=== PATIENT | female | born 1975 | race African-American/Black ===

== ENCOUNTER 2017-07-15 18:00 | Emergency (ER) | payer OTHER ==
[~2017-07-15] VITALS: Ht 162.6 cm; Wt 56.4 kg
[~2017-07-15 18:00] MED LIST: CITA10SO PO; DEPO400I IM
[2017-07-15 18:22] VITALS: BP 136/79; PULSE 99; RESP 20; TEMP 98.6; O2SAT 100
[2017-07-15 19:53] LABS: BILIRUBIN, URINE NEG (NEG); BLOOD, URINE SMALL (NEG); GLUCOSE,URINE NEG (NEG); KETONE, URINE NEG (NEG); NITRITE,URINE NEG (NEG); PH, URINE 5.5 (5.0-8.5); SQUAMOUS EPITHELIAL CELL URINE 1 /hpf (0-5); URINE COLOR YELLOW (YELLW/STRAW); URINE LEUKOCYTE ESTERASE NEG (NEG)
--- NOTE | 2017-07-15 22:12 | PD ---
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 She reports that the symptoms started this morning, she states it davis when she urinates. She denies any new lotions or detergents. She denies any vaginal bleeding, fevers, back pain, abdominal pain. She states that she took Diflucan this morning but her symptoms persisted. She does report unprotected sexual activity however she is in a monogamous relationship. Symptom onset was sudden, symptoms are mild in nature. PFSH Past Medical History Cardiovascular Problems: Yes (HEART MURMUR) Migraines: No Myocardial Infarction: No Radiation Therapy: No Renal Failure: No Seizures: No Sickle Cell Disease: No Sleep Apnea: No Thyroid Disease: No Ulcer: No ?: Not : 4 Para: 3 Miscarriage: 1 : 0 Past Surgical History Joint Replacement: No Pacemaker: Yes Other Surgery: Yes (BROKEN JAW WIRED 1992) Social History Alcohol Use: No Tobacco Use: No Substance Use: No Allergies-Medications (Allergen,Severity, Reaction): Coded Allergies: penicillin G (Unverified Allergy, Intermediate, RASH, 11/26/16) Reported Meds & Prescriptions Reported Meds & Active Scripts Active Reported Depo-Provera Inj (Medroxyprogesterone Inj) 150 Mg/Ml Inj 150 Mg IM Q90D Review of Systems Except as stated in HPI: all other systems reviewed are Neg Genitourinary: Positive: Dysuria, Discharge, Other (Foul odor) Physical Exam Narrative GENERAL: Well-developed, well-nourished, well-appearing female. Presenting in no acute distress. SKIN: Warm and dry. HEAD: Normocephalic. EYES: No scleral icterus. No injection or drainage. NECK: Supple, trachea midline. No JVD or lymphadenopathy. CARDIOVASCULAR: Regular rate and rhythm without murmurs, gallops, or rubs. RESPIRATORY: Breath sounds equal bilaterally. No accessory muscle use. GASTROINTESTINAL: Abdomen soft, non-tender, nondistended. MUSCULOSKELETAL: No cyanosis, or edema. BACK: Nontender without obvious deformity. No CVA tenderness. GENITOURINARY: Normal external genitalia without lesions or erythema. Vaginal vault without blood. White malodorous drainage noted in vaginal vault. Cervical os was closed with scant blood. No cervical motion tenderness. Uterus nontender and nonenlarged. Bilateral adnexa nontender without masses. Data Data Last Documented VS Vital Signs Date Time Temp Pulse Resp B/P (MAP) Pulse Ox O2 Delivery O2 Flow Rate FiO2 07/15/17 18:22 98.6 99 20 136/79 (98) 100 Orders Orders Urinalysis - C+S If Indicated (07/15/17 18:24) Ed Urine Pregnancytest Poc (07/15/17 18:24) Gc And Chlamydia Pcr (07/15/17 22:05) Wet Prep Profile (07/15/17 22:05) Labs Laboratory Tests Test 07/15/17 18:50 07/15/17 22:30 Urine Color YELLOW Urine Turbidity CLEAR Urine pH 5.5 Urine Specific [place] 1.012 Urine Protein NEG mg/dL Urine Glucose (UA) NEG mg/dL Urine Ketones NEG mg/dL Urine Occult Blood SMALL Urine Nitrite NEG Urine Bilirubin NEG Urine Urobilinogen LESS THAN 2.0 MG/DL Urine Leukocyte Esterase NEG Urine RBC 2 /hpf Urine Squamous Epithelial Cells 1 /hpf Microscopic Urinalysis Comment CULT NOT INDICATED Clue Cells (Wet Prep) PRESENT Vaginal Trichomonas (Wet Prep) NONE SEEN Vaginal Yeast (Wet Prep) NONE SEEN MDM Medical Decision Making Medical Screen Exam Complete: Yes Emergency Medical Condition: Yes Interpretation(s) Laboratory Tests Test 07/15/17 18:50 07/15/17 22:30 Urine Color YELLOW Urine Turbidity CLEAR Urine pH 5.5 Urine Specific [place] 1.012 Urine Protein NEG mg/dL Urine Glucose (UA) NEG mg/dL Urine Ketones NEG mg/dL Urine Occult Blood SMALL Urine Nitrite NEG Urine Bilirubin NEG Urine Urobilinogen LESS THAN 2.0 MG/DL Urine Leukocyte Esterase NEG Urine RBC 2 /hpf Urine Squamous Epithelial Cells 1 /hpf Microscopic Urinalysis Comment CULT NOT INDICATED Clue Cells (Wet Prep) PRESENT Vaginal Trichomonas (Wet Prep) NONE SEEN Vaginal Yeast (Wet Prep) NONE SEEN Vital Signs Date Time Temp Pulse Resp B/P (MAP) Pulse Ox O2 Delivery O2 Flow Rate FiO2 07/15/17 18:22 98.6 99 20 136/79 (98) 100 Differential Diagnosis UTI versus STD versus bacterial vaginosis versus Eryn versus other Narrative Course Patient is a 38-year-old female presenting to emergency room for evaluation of vaginal discharge and urinary symptoms. Patient's vital signs are stable, labs ordered and pending. Urinalysis unremarkable. Wet prep is positive for clue cells. Patient will be treated with metronidazole. 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 She is encouraged to return to emergency department for any new or worsening symptoms. She verbalized understanding of instructions. Patient stable for discharge. Will defer treatment for GC and chlamydia until results are available as patient is in a monogamous relationship with no risk factors. 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
[2017-07-15] MEDS ORDERED: DEPO150I IM (22:31)
[2017-07-15] MEDS ORDERED: METR1TAB76 PO (23:22)
[2017-07-15] MEDS ORDERED: metroNIDAZOLE 500 MG TAB PO ONE (23:30)
== END 2017-07-15 23:29 | disposition home or self-care (01) ==
LOC: NEPD 18:00
DX: N76.0 Acute vaginitis (principal); B96.89 Other specified bacterial agents as the cause of diseases classified elsewhere; Z95.0 Presence of cardiac pacemaker; Z88.0 Allergy status to penicillin; Z79.899 Other long term (current) drug therapy
CPT/HCPCS: 81001; 84703; 87210; 87491; 87591; 99284

== ENCOUNTER 2017-07-28 15:57 | Emergency (ER) | payer OTHER ==
[~2017-07-28 15:57] MED LIST changes: -CITA10SO PO; +DEPO150I IM; -DEPO400I IM; +METR1TAB76 PO
[2017-07-28 16:23] VITALS: BP 141/70; PULSE 86; RESP 16; TEMP 98.9; O2SAT 100
--- NOTE | 2017-07-28 16:41 | RADRPT ---
EXAM DATE/TIME: 07/28/2017 16:34 [facility] COMPARISON: No previous studies available for comparison. INDICATIONS : Cough. MEDICAL HISTORY : None. SURGICAL HISTORY : None. ENCOUNTER: Initial ACUITY: 1 week PAIN SCORE: 6/10 LOCATION: Bilateral chest FINDINGS: PA and lateral views of the chest demonstrate the lungs to be symmetrically aerated without evidence of mass, infiltrate or effusion. The cardiomediastinal contours are unremarkable. Osseous structure s are intact with a mild dextroscoliosis of the dorsal spine. CONCLUSION: No acute cardiopulmonary process. Lungs are clear. Ross Estrada MD on July 28, 2017 at 16:38 Board Certified Radiologist. This report was verified electronically.
[2017-07-28 18:08] VITALS: O2SAT 100
[2017-07-28] MEDS ORDERED: CELE10TA PO (18:09)
--- NOTE | 2017-07-28 18:09 | PD ---
HPI Chief Complaint: Cold / Flu Symptoms Time Seen by Provider: 18:03 Travel History International Travel<30 days: No Contact w/Intl Traveler<30days: No Traveled to known affect area: No History of Present Illness HPI 41-year-old female here for evaluation of flulike symptoms with cough, sore throat, generalized malaise, abdominal pain, one episode of vomiting this morning. Symptoms started 2 days ago with a sore throat. Cough started today. Cough is productive of yellowish sputum. No hemoptysis. She reports one episode of posttussive emesis this morning, and since that time has had some epigastric discomfort that she describes as a pressure, constant. No history of abdominal surgeries. No fevers. No diarrhea. PFSH Past Medical History Arthritis: No Asthma: No Autoimmune Disease: No Blood Disorders: No Anxiety: No Depression: No Heart Rhythm Problems: No Cancer: No Cardiovascular Problems: Yes (HEART MURMUR) Chemotherapy: No Chest Pain: No Congestive Heart Failure: No COPD: No Cerebrovascular Accident: No Diabetes: No Diminished Hearing: No Endocrine: No Gastrointestinal Disorders: No GERD: No Glaucoma: No Genitourinary: No Headaches: No Hepatitis: No Hiatal Hernia: No Heparin Induced Thrombocytopen: No Hypertension: No Immune Disorder: No Implanted Vascular Access Dvce: No Kidney Stones: No Musculoskeletal: No Neurologic: No Psychiatric: No Reproductive: Yes (MISCARRIAGE ) Respiratory: No Migraines: No Myocardial Infarction: No Radiation Therapy: No Renal Failure: No Seizures: No Sickle Cell Disease: No Sleep Apnea: No Thyroid Disease: No Ulcer: No ?: Not : 4 Para: 3 Miscarriage: 1 : 0 Past Surgical History Abdominal Surgery: No AICD: No Appendectomy: No Arteriovenous Shunt: No Cardiac Surgery: No Cholecystectomy: No Ear Surgery: No Endocrine Surgery: No Eye Surgery: No Genitourinary Surgery: No Gynecologic Surgery: No Insulin Pump: No Joint Replacement: No Neurologic Surgery: No Oral Surgery: No Pacemaker: Yes Thoracic Surgery: No Other Surgery: Yes (BROKEN JAW WIRED 1992) Social History Alcohol Use: No Tobacco Use: No Substance Use: No Allergies-Medications (Allergen,Severity, Reaction): Coded Allergies: penicillin G (Unverified Allergy, Intermediate, RASH, 11/26/16) Reported Meds & Prescriptions Reported Meds & Active Scripts Active Reported Celexa (Citalopram Hydrobromide) 10 Mg Tab 10 Mg PO DAILY Depo-Provera Inj (Medroxyprogesterone Inj) 150 Mg/Ml Inj 150 Mg IM Q90D Review of Systems Except as stated in HPI: all other systems reviewed are Neg Physical Exam Narrative GENERAL: Well-developed, well-nourished, comfortable, no apparent distress. SKIN: Focused skin assessment warm/dry. HEAD: Atraumatic. Normocephalic. EYES: Pupils equal and round. No scleral icterus. No injection or drainage. ENT: Mucous membranes pink and moist. NECK: Trachea midline. No JVD. CARDIOVASCULAR: Regular rate and rhythm. RESPIRATORY: No accessory muscle use. Clear to auscultation. Breath sounds equal bilaterally. GASTROINTESTINAL: Abdomen soft, nondistended. Mild epigastric tenderness without peritoneal signs. Negative Jain sign. Rest of abdomen is soft and nontender. Normal bowel sounds. MUSCULOSKELETAL: No obvious deformities. No clubbing. No cyanosis. No edema. NEUROLOGICAL: Awake and alert. No obvious cranial nerve deficits. Motor grossly within normal limits. Normal speech. PSYCHIATRIC: Appropriate mood and affect; insight and judgment normal. Data Data Last Documented VS Vital Signs Date Time Temp Pulse Resp B/P (MAP) Pulse Ox O2 Delivery O2 Flow Rate FiO2 07/28/17 19:06 62 18 135/70 (91) 100 Room Air 07/28/17 16:23 98.9 Orders Orders Chest, Pa & Lat (07/28/17 ) Beta Hcg (Quant/Titer) (07/28/17 18:06) Complete Blood Count With Diff (07/28/17 18:06) Comprehensive Metabolic Panel (07/28/17 18:06) Lipase (07/28/17 18:06) Prothrombin Time / Inr (Pt) (07/28/17 18:06) Act Partial Throm Time (Ptt) (07/28/17 18:06) Urinalysis - C+S If Indicated (07/28/17 18:06) Iv Access Insert/Monitor (07/28/17 18:06) Ecg Monitoring (07/28/17 18:06) Oximetry (07/28/17 18:06) Sodium Chloride 0.9% Flush (Ns Flush) (07/28/17 18:15) Al-Mag Hy-Si 40-40-4 Mg/Ml Liq (Mag-Al P (07/28/17 18:15) Lidocaine 2% Viscous (Xylocaine 2% Visco (07/28/17 18:15) Influenzae A/B Antigen (07/28/17 18:09) Metoclopramide Inj (Reglan Inj) (07/28/17 20:15) Ketorolac Inj (Toradol Inj) (07/28/17 20:15) Labs Laboratory Tests Test 07/28/17 18:30 07/28/17 18:45 Urine Color YELLOW Urine Turbidity CLEAR Urine pH 5.5 Urine Specific [place] 1.020 Urine Protein NEG mg/dL Urine Glucose (UA) NEG mg/dL Urine Ketones NEG mg/dL Urine Occult Blood MOD Urine Nitrite NEG Urine Bilirubin NEG Urine Urobilinogen LESS THAN 2.0 MG/DL Urine Leukocyte Esterase NEG Urine RBC 6 /hpf Urine Squamous Epithelial Cells <1 /hpf Microscopic Urinalysis Comment CULT NOT INDICATED White Blood Count 8.2 TH/MM3 Red Blood Count 4.49 MIL/MM3 Hemoglobin 13.7 GM/DL Hematocrit 41.2 % Mean Corpuscular Volume 91.8 FL Mean Corpuscular Hemoglobin 30.5 PG Mean Corpuscular Hemoglobin Concent 33.2 % Red Cell Distribution Width 13.8 % Platelet Count 268 TH/MM3 Mean Platelet Volume 7.5 FL Neutrophils (%) (Auto) 55.5 % Lymphocytes (%) (Auto) 37.1 % Monocytes (%) (Auto) 5.3 % Eosinophils (%) (Auto) 1.7 % Basophils (%) (Auto) 0.4 % Neutrophils # (Auto) 4.6 TH/MM3 Lymphocytes # (Auto) 3.1 TH/MM3 Monocytes # (Auto) 0.4 TH/MM3 Eosinophils # (Auto) 0.1 TH/MM3 Basophils # (Auto) 0.0 TH/MM3 CBC Comment DIFF FINAL Differential Comment Prothrombin Time 9.7 SEC Prothromb Time International Ratio 1.0 RATIO Activated Partial Thromboplast Time 24.4 SEC Blood Urea Nitrogen 14 MG/DL Creatinine 1.00 MG/DL Random Glucose 84 MG/DL Total Protein 7.6 GM/DL Albumin 3.4 GM/DL Calcium Level 8.4 MG/DL Alkaline Phosphatase 108 U/L Aspartate Amino Transf (AST/SGOT) 34 U/L Alanine Aminotransferase (ALT/SGPT) 22 U/L Total Bilirubin 0.8 MG/DL Sodium Level 140 MEQ/L Potassium Level 5.2 MEQ/L Chloride Level 111 MEQ/L Carbon Dioxide Level 22.6 MEQ/L Anion Gap 6 MEQ/L Estimat Glomerular Filtration Rate 73 ML/MIN Lipase 161 U/L Human Chorionic Gonadotropin, Quant LESS THAN 1 MIU/ML MDM Medical Decision Making Medical Screen Exam Complete: Yes Emergency Medical Condition: Yes Differential Diagnosis Influenza, flulike illness, pneumonia, bronchitis, gastritis, peptic ulcer disease, pancreatitis, hepatobiliary disease Narrative Course Vital signs reviewed and are within normal limits. CBC is unremarkable. CMP is remarkable for potassium of 5.2 with slight hemolysis, otherwise unremarkable. Lipase is 161. UA shows moderate occult blood, 6 RBCs, not suggestive of UTI. Beta-hCG is negative. Chest x-ray: No acute cardiopulmonary process. Lungs are clear. Influenza is negative. Patient was made aware of all findings. States her abdominal pain is improved after GI cocktail. Pain was epigastric and is likely gastritis. She complains of frontal headache and will be given Reglan and Toradol and will be reassessed. Patient was given Reglan and Toradol and feels significantly improved. Her abdominal exam is benign. I do not believe that there is an acute intra- abdominal process to warrant further imaging at this time. She is stable for discharge home with outpatient follow-up with her primary care physician this week. She likely has a viral illness. She was informed on when to return to the emergency department. She verbalizes understanding and agreement with plan. Diagnosis Primary Impression: Viral illness Additional Impressions: Epigastric abdominal pain Headache Qualified Codes: R51 - Headache Referrals: Primary Care Physician 3 days Additional Instructions: Follow-up with your primary care physician this week. Return to the emergency department for worsening symptoms or any other concerns. Disposition: 01 DISCHARGE HOME Condition: Stable Aden Tipton MD Jul 28, 2017 18:09
[2017-07-28] MEDS ORDERED: LIDOCAINE VISCOUS 2% SOLN 15 ML UDC PO ONE (18:15)
[2017-07-28] MEDS ORDERED: ALUMINUM/MAGNESIUM/SIMETH 30 ML CUP PO ONE (18:15)
[2017-07-28] MEDS ORDERED: SODIUM CHLORIDE 0.9% FLUSH 10 ML FLUSH IV FLUSH PRN (18:15)
[2017-07-28 19:02] LABS: AUTOMATED NEUTROPHIL # 4.6 TH/MM3 (1.8-7.7); BASOPHIL % 0.4 % (0.0-2.0); EOSINOPHIL # 0.1 TH/MM3 (0-0.4); EOSINOPHIL % 1.7 % (0.0-4.0); HEMATOCRIT 41.2 % (35.0-46.0); HEMOGLOBIN 13.7 GM/DL (11.6-15.3); LYMPH % 37.1 % (9.0-44.0); LYMPHOCYTE # 3.1 TH/MM3 (1.0-4.8); MEAN CELL VOLUME 91.8 FL (80.0-100.0); MEAN CORPUSCULAR HEMOGLOBIN 30.5 PG (27.0-34.0); MEAN CORPUSCULAR HGB CONC 33.2 % (32.0-36.0); MEAN PLATELET VOLUME 7.5 FL (7.0-11.0); MONO % 5.3 % (0.0-8.0); MONOCYTE # 0.4 TH/MM3 (0-0.9); NEUT % 55.5 % (16.0-70.0); PLATELET COUNT 268 TH/MM3 (150-450); RED BLOOD COUNT 4.49 MIL/MM3 (4.00-5.30); RED CELL DISTRIBUTION WIDTH 13.8 % (11.6-17.2); WHITE BLOOD COUNT 8.2 TH/MM3 (4.0-11.0)
[2017-07-28 19:06] VITALS: BP 135/70; PULSE 62; RESP 18; O2SAT 100
[2017-07-28 19:14] LABS: BILIRUBIN, URINE NEG (NEG); BLOOD, URINE MOD (NEG); GLUCOSE,URINE NEG (NEG); KETONE, URINE NEG (NEG); NITRITE,URINE NEG (NEG); PH, URINE 5.5 (5.0-8.5); SQUAMOUS EPITHELIAL CELL URINE <1 /hpf (0-5); URINE COLOR YELLOW (YELLW/STRAW); URINE LEUKOCYTE ESTERASE NEG (NEG)
[2017-07-28 19:18] LABS: ALT (GPT) 22 U/L (10-53); PROTHROMBIN TIME - PATIENT 9.7 SEC (9.8-11.6)
[2017-07-28 19:20] LABS: ALBUMIN 3.4 GM/DL (3.4-5.0); AST (GOT) 34 U/L (15-37); BICARBONATE 22.6 MEQ/L (21.0-32.0); BLOOD UREA NITROGEN 14 MG/DL (7-18); CALCIUM 8.4 MG/DL (8.5-10.1); CHLORIDE 111 MEQ/L (98-107); GLOMERULAR FILTRATION RATE 73 ML/MIN (>89); GLUCOSE,RANDOM 84 MG/DL (74-106); SODIUM (NA) 140 MEQ/L (136-145)
[2017-07-28 19:22] LABS: ALKALINE PHOSPHATASE 108 U/L (45-117); TOTAL BILIRUBIN ADULT 0.8 MG/DL (0.2-1.0); TOTAL PROTEIN 7.6 GM/DL (6.4-8.2)
[2017-07-28] MEDS ORDERED: KETOROLAC TROMETHAMINE 30 MG/ML (IVP) VIAL IV PUSH ONE (20:15)
[2017-07-28] MEDS ORDERED: METOCLOPRAMIDE HCL 10 MG/2 ML VIAL IV PUSH ONE (20:15)
== END 2017-07-28 20:50 | disposition home or self-care (01) ==
LOC: NEPD 15:57
DX: B34.9 Viral infection, unspecified (principal); R10.13 Epigastric pain; R51 Headache; J02.9 Acute pharyngitis, unspecified; R53.81 Other malaise; R01.1 Cardiac murmur, unspecified; Z88.0 Allergy status to penicillin
CPT/HCPCS: 71046; 80053; 81001; 83690; 84702; 85025; 85610; 85730; 87804; 96374; 96375; 99284; J1885; J2765

== ENCOUNTER 2017-10-04 18:16 | Emergency (ER) | payer OTHER ==
[~2017-10-04] VITALS: Ht 160 cm; Wt 57.0 kg
[~2017-10-04 18:16] MED LIST changes: +CELE10TA PO; -METR1TAB76 PO
[2017-10-04 18:22] VITALS: BP 129/72; PULSE 72; RESP 16; TEMP 98.3; O2SAT 100
[2017-10-04] MEDS ORDERED: ROBA500T PO (19:34)
[2017-10-04] MEDS ORDERED: DICL75TA PO (19:34)
--- NOTE | 2017-10-04 19:40 | PD ---
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 The patient states that she did not notice any significant discomfort initially but the pain progressively came on over the next 24 hours. She states the pain radiates up into her neck and into her right shoulder. She has difficulty moving her right arm due to pain. She denies any prior injury. She denies any sensory changes. No weakness. PFSH Past Medical History Narrative Medical depression Arthritis: No Asthma: No Autoimmune Disease: No Blood Disorders: No Anxiety: No Depression: No Heart Rhythm Problems: No Cancer: No Cardiovascular Problems: Yes (HEART MURMUR) Chemotherapy: No Chest Pain: No Congestive Heart Failure: No COPD: No Cerebrovascular Accident: No Diabetes: No Diminished Hearing: No Endocrine: No Gastrointestinal Disorders: No GERD: No Glaucoma: No Genitourinary: No Headaches: No Hepatitis: No Hiatal Hernia: No Heparin Induced Thrombocytopen: No Hypertension: No Immune Disorder: No Implanted Vascular Access Dvce: No Kidney Stones: No Musculoskeletal: No Neurologic: No Psychiatric: No Reproductive: Yes (MISCARRIAGE ) Respiratory: No Migraines: No Myocardial Infarction: No Radiation Therapy: No Renal Failure: No Seizures: No Sickle Cell Disease: No Sleep Apnea: No Thyroid Disease: No Ulcer: No Tetanus Vaccination: < 5 Years ?: Not LMP: DEPO : 4 Para: 3 Miscarriage: 1 : 0 Past Surgical History Abdominal Surgery: No AICD: No Appendectomy: No Arteriovenous Shunt: No Cardiac Surgery: No Cholecystectomy: No Ear Surgery: No Endocrine Surgery: No Eye Surgery: No Genitourinary Surgery: No Gynecologic Surgery: No Insulin Pump: No Joint Replacement: No Neurologic Surgery: No Oral Surgery: No Pacemaker: Yes Thoracic Surgery: No Other Surgery: Yes (BROKEN JAW WIRED 1992) Social History Alcohol Use: Yes (occ) Tobacco Use: No Substance Use: No Allergies-Medications (Allergen,Severity, Reaction): Coded Allergies: penicillin G (Unverified Allergy, Intermediate, RASH, 11/26/16) Reported Meds & Prescriptions Reported Meds & Active Scripts Active Robaxin (Methocarbamol) 500 Mg Tab 1,000 Mg PO TID [address] (Diclofenac Sodium) 75 Mg Tabdr 75 Mg PO BID Reported Celexa (Citalopram Hydrobromide) 10 Mg Tab 10 Mg PO DAILY Depo-Provera Inj (Medroxyprogesterone Inj) 150 Mg/Ml Inj 150 Mg IM Q90D Review of Systems General / Constitutional: No: Fever Eyes: No: Visual changes HENT: Positive: Neck Stiffness, Neck Pain, No: Headaches Cardiovascular: No: Chest Pain or Discomfort Respiratory: No: Shortness of Breath Gastrointestinal: No: Abdominal Pain Genitourinary: No: Dysuria Musculoskeletal: Positive: Myalgias, Limited ROM, Cramping, Pain, No: Arthralgias Skin: No Rash Neurologic: No: Weakness Psychiatric: No: Depression Endocrine: No: Polydipsia Hematologic/Lymphatic: No: Easy Bruising Physical Exam Narrative GENERAL: Well-developed, well-nourished in no apparent distress. Nontoxic appearing. HEAD: Normocephalic, atraumatic. EYES: Pupils equal round and reactive. Extraocular motions intact. No scleral icterus. No injection or drainage. ENT: Nose clear. Throat without erythema, tonsillar hypertrophy or exudate. Uvula midline. Airway patent. NECK: Trachea midline. Supple, no central bony tenderness. Patient has tenderness and spasm to the right trapezius with decreased range of motion. CARDIOVASCULAR: Regular rate and rhythm without murmurs, gallops, or rubs. RESPIRATORY: Clear to auscultation. Breath sounds equal bilaterally. No wheezes , rales, or rhonchi. GASTROINTESTINAL: Abdomen soft, non-tender, nondistended. No hepato-splenomegaly , or palpable masses. No guarding. EXTREMITIES: No clubbing, cyanosis, or edema. No joint tenderness. BACK: Nontender without deformity. No flank tenderness. NEUROLOGICAL: Awake, alert and oriented x 3 .Cranial nerves grossly intact. Motor and sensory grossly within normal limits. Normal speech. Data Data Last Documented VS Vital Signs Date Time Temp Pulse Resp B/P (MAP) Pulse Ox O2 Delivery O2 Flow Rate FiO2 10/04/17 18:22 98.3 72 16 129/72 (91) 100 Orders Orders Ed Discharge Order (10/04/17 19:32) Naproxen (Naprosyn) (10/04/17 19:45) Cyclobenzaprine (Flexeril) (10/04/17 19:45) MDM Medical Decision Making Medical Screen Exam Complete: Yes Emergency Medical Condition: Yes Medical Record Reviewed: Yes Differential Diagnosis MDM: High Differential diagnoses: Fracture, sprain, strain, dislocation, contusion, neurovascular injury Narrative Course Patient has what appears to be spasms in her right trapezius. Patient will be treated symptomatically x-rays are not indicated. Diagnosis Primary Impression: Neck spasm Patient Instructions: General Instructions Additional Instructions: Rest. Heating pad. Robaxin and Voltaren. Massage Follow-up with a primary care doctor in one week. Return to the ER for emergencies. Med/Other Pt SpecificInfo: Prescription(s) given Scripts Methocarbamol (Robaxin) 500 Mg Tab 1000 MG PO TID for Muscle Spasm for 10 Days, TAB 0 Refills Prov: Ravi Sorto MD 10/04/[address] (Diclofenac Sodium DR) 75 Mg Tabdr 75 MG PO BID, #20 TAB 0 Refills Prov: Ravi Sorto MD 10/04/17 Disposition: 01 DISCHARGE HOME Condition: Stable Saran Quintanilla Oct 04, 2017 19:40
[2017-10-04] MEDS ORDERED: CYCLOBENZAPRINE HCL 10 MG TAB PO ONE (19:45)
[2017-10-04] MEDS ORDERED: NAPROXEN 500 MG TAB PO ONE (19:45)
== END 2017-10-04 20:24 | disposition home or self-care (01) ==
LOC: NEPD 18:16
DX: M62.838 Other muscle spasm (principal); M54.2 Cervicalgia
CPT/HCPCS: 99283